=== PATIENT | female | born 1955 | race Caucasian/White ===

== ENCOUNTER 2021-11-24 15:46 | Emergency (ER) | payer OTHER ==
[2021-11-24 16:10] VITALS: BP 180/97; PULSE 77; TEMP 97.8; BMI 34.0
== END 2021-11-24 17:28 | disposition home or self-care (01) ==
LOC: JER 15:46 → JERFT 15:46
DX: S46.911A Strain of unspecified muscle, fascia and tendon at shoulder and upper arm level, right arm, initial encounter (principal); S39.012A Strain of muscle, fascia and tendon of lower back, initial encounter; V49.40XA Driver injured in collision with unspecified motor vehicles in traffic accident, initial encounter
CPT/HCPCS: 99281-25

== ENCOUNTER 2022-01-29 04:26 | Day surgery (SDC) | payer OTHER ==
[2022-01-27 11:42] VITALS: BMI 33.6
[2022-01-29 10:46] VITALS: BP 160/98; PULSE 60; TEMP 98.6
== END 2022-01-29 10:45 | disposition home or self-care (01) ==
LOC: JASU-ENDO 04:26
PROVIDERS: ATTEND Internal Medicine Gastroenterology
PROC: 0DBP8ZX Excision of Rectum, Via Natural or Artificial Opening Endoscopic, Diagnostic (ICD-10-PCS; 2022-01-29)
PROC: 0DBM8ZX Excision of Descending Colon, Via Natural or Artificial Opening Endoscopic, Diagnostic (ICD-10-PCS; principal; 2022-01-29 08:45)
DX: Z12.11 Encounter for screening for malignant neoplasm of colon (principal); D12.4 Benign neoplasm of descending colon; A63.0 Anogenital (venereal) warts; K64.8 Other hemorrhoids; K59.89 Other specified functional intestinal disorders; Z86.010 Personal history of colon polyps
CPT/HCPCS: 88305-TC

== ENCOUNTER 2022-09-09 09:32 | Emergency (ER) | payer OTHER ==
[2022-09-09 09:43] VITALS: BP 156/91; PULSE 91; RESP 20; TEMP 98.8; BMI 34.0
[2022-09-09] MEDS ORDERED: IBUPROFEN 600 MG TABLET (FP) PO ONE ×2 (11:32→11:36)
[2022-09-09] MEDS ORDERED: METHOCARBAMOL 500 MG TABLET PO ONE (11:32)
[2022-09-09] MEDS ORDERED: METHOCARBAMOL 500 MG TABLET ONE (11:36)
== END 2022-09-09 11:48 | disposition home or self-care (01) ==
LOC: JERFT 09:32 → JER 09:32 → JERFT 11:48
DX: M54.42 Lumbago with sciatica, left side (principal)
CPT/HCPCS: 99283-25

== ENCOUNTER 2023-02-09 04:57 | Day surgery (SDC) | payer OTHER ==
[2023-02-03 15:19] VITALS: BMI 34.1
[2023-02-09 11:54] VITALS: TEMP 98.6
[2023-02-09 14:32] VITALS: BP 127/74; PULSE 56; RESP 14
== END 2023-02-09 13:20 | disposition home or self-care (01) ==
LOC: JASU-ENDO 04:57
PROVIDERS: ATTEND Internal Medicine Gastroenterology
PROC: 0DB78ZX Excision of Stomach, Pylorus, Via Natural or Artificial Opening Endoscopic, Diagnostic (ICD-10-PCS; 2023-02-09)
PROC: 0DB68ZX Excision of Stomach, Via Natural or Artificial Opening Endoscopic, Diagnostic (ICD-10-PCS; principal; 2023-02-09 12:15)
DX: K29.50 Unspecified chronic gastritis without bleeding (principal); I10 Essential (primary) hypertension
CPT/HCPCS: 88305-TC; 88342-TC